=== PATIENT | female | born 2005 | race Caucasian/White ===

== ENCOUNTER 2025-03-04 19:10 | Emergency (ER) | payer OTHER, SELFPAY ==
--- NOTE | ~2025-03-04 | XR_ITS ---
CLINICAL HISTORY: sob 2 view chest x-ray Comparison: None provided Findings: Heart size is normal. Vague left lower lobe opacity. Right lung is clear. No pleural effusion or pneumothorax. No acute fracture. IMPRESSION: 1. Vague left lower lobe opacity either atelectasis or early pneumonia. Correlate clinically. This document has been electronically signed by: Hilary Cleaning MD on 03/04/2025 20:16:45
[2025-03-04 19:22] VITALS: BP 114/71; PULSE 89; RESP 20; TEMP 36.3; O2SAT 100; BMI 16.3
--- NOTE | 2025-03-04 19:23 | ED.GENADULT ---
HPI - General Adult General Chief complaint: Dyspnea Stated complaint: Difficulty breathing/low blood pressure Time Seen by Provider: 03/04/25 22:05 Source: patient and family (mom) Mode of arrival: ambulatory Limitations: no limitations History of Present Illness ED Provider: Dr. Ivett Capone HPI narrative: 19-year-old female with history of anorexia presenting with substernal chest pain, sore throats, decreased oral intake and diffuse myalgias, worse in the bilateral lower extremities ongoing for the last several months. Admits that she has been suffering from severe leg pain since [place]. Describes muscle aches that have been persistent since the fall. Admits that she has had an extensive workup including orthopedic surgery follow-up and MRIs of her legs that have been reportedly normal. Denies associated fevers. Describes poor appetite and 10 lb weight loss during this time frame. She is adamant that she does not have worsening anorexia though she does struggle with this previously. Admits to feeling severely anxious about the pain. Has been using Tylenol without relief. No specific tick exposure or sick contacts. Denies cough or cold-type symptoms. Has not spoken with her primary care doctor about this but has been to the urgent care multiple times Related Data Previous Rx's ?Medication ?Instructions ?Recorded duloxetine 20 mg capsule,delayed 20 mg PO DAILY 60 days #60 caps 03/04/25 release Allergies Allergy/AdvReac Type Severity Reaction Status Date / Time No Known Allergies Allergy Verified 03/04/25 19:28 Review of Systems Review of Systems: as per HPI, full review of systems performed and negative but for the above mentioned pertinent positives and negatives. [facility] Social History Social History Smoked in Last 30 Days: No Use of substances other than those prescribed or required for medical reasons: No Advance Directives: No Advance Directives Information Provided: No Patient : No Physical Exam ED Exam Exam: GENERAL: Anxious, tearful, cachetic. SKIN: Normal skin color for ethnicity, warm, dry, intact, no rashes noted. HEENT: Normocephalic, atraumatic, no stridor, posterior oropharynx nonerythematous, dentition intact, EOMI. NECK: Soft, supple, full ROM, midline structures nontender, no step-offs, no deformities, no lymphadenopathy. CHEST: Heart regular tachycardia, no murmurs, symmetric chest rise and fall, no crepitus. PULMONARY: Clear to auscultation bilaterally, no labored breathing, no wheezes/rhales/ rhonchi. ABDOMINAL: Soft, nondistended, nontender, positive bowel sounds in all quadrants. : Deferred. MUSCULOSKELETAL: Normal tone, full range of motion, no deformities, no peripheral edema. NEURO: Alert and oriented x3, CN II through XII intact, equal strength and sensation bilateral upper and lower extremities, no focal neurologic deficits. PSYCHIATRIC: Anxious affect, tearful, fluid speech, poor eye contact and appropriate demeanor. Vital Signs: Vital Signs - 24 hr 03/04/25 19:22 03/04/25 21:16 03/04/25 22:53 Temperature 97.4 F 97.7 F 97.8 F Pulse Rate 89 84 73 Respiratory Rate 20 16 18 Blood Pressure 114/71 96/62 90/55 L Pulse Oximetry 100 100 99 Oxygen Delivery Method Room Air Room Air Room Air 03/05/25 00:30 03/05/25 00:34 Temperature 97.9 F 97.9 F Pulse Rate 78 78 Respiratory Rate 14 14 Blood Pressure 97/64 97/64 Pulse Oximetry 97 97 Oxygen Delivery Method Room Air BMI result Body Mass Index 16.3 Course Course Course Narrative: This is a Rapid Medical Examination (RME) performed by Elinaa Serna PA-C in triage. Full HPI, ROS, assessment and treatment plan per primary provider in the Main ED. Hx: 19 yo F here for eval of sob and substernal CP on waking from a name 1.5 hours ago. pain worse w/ deep inspiration/palpation. denies smoking tobacco or vaping. reports pulling a tick off of her neck a few weeks back. believes this may have been attached for 3 days. no rashes. reports she is currently on steroid treatment for knee pain. saw NE ramírez for this - had normal MRI. did not mention recent tick bite. PE/vitals: reproducible tenderness to anterior chest wall. lungs clear. Plan: labs, tick/lyme, ekg, cxr Medications Administered Discontinued Medications Generic Name Dose Route Start Last Admin Trade Name Freq PRN Reason Stop Dose Admin Duloxetine HCl 20 mg 03/04/25 23:38 03/05/25 00:29 Duloxetine Hcl 20 Mg Capsule.Dr BYNUM 03/04/25 23:39 20 mg ONCE ONE Administration Medical Decision Making Medical Decision Making [facility] Narrative: 19-year-old female presenting with diffuse myalgias, chronic pain unrelieved with Tylenol and extensively worked up as an outpatient including with orthopedic surgery and MRI imaging. Differential diagnosis includes viral syndrome, rhabdomyolysis, tick-borne illness, chronic fatigue syndrome, fibromyalgia, chronic pain syndrome, anxiety, depression, anorexia, among others. I had an extensive discussion with the patient and her mother regarding what I believed to be chronic fatigue/pain syndrome. She has and amplified response to pain at this point. Her workup is very reassuring. We talked about importance of follow-up with therapists as well as re-dressing her issue with food. She has lost 10 lb and is down to 43 kg. I am going to start her on duloxetine which I think will help her more than anything. Also encouraged the use of Motrin and Tylenol as needed. She is not really taking these medications regularly at home. At this point I feel she is stable for discharge. Using shared decision making, plan for discharge home to follow-up with primary care and/or specialist. Patient understands and agrees with plan for discharge. Discharged home in stable condition. Differential Diagnosis Differential Diagnoses: The differential diagnosis associated with the presentation includes (as above) Admission/Observation Consideration of admission/observation: Escalation of care including admission/observation considered Lab Data [facility] Lab Attestation statement: I reviewed the patient's lab results. 03/04/25 21:23 03/04/25 21:23 Labs: Lab Results 03/04/25 Range/Units 21:23 WBC 7.5 (4.8-10.8) X10*3/uL RBC 4.26 (4.20-5.50) X10*6/uL Hgb 13.4 (12.0-16.0) g/dl Hct 38.1 (37.0-47.0) % MCV 89.4 (80.0-98.0) fL MCH 31.5 (27.0-33.0) pg MCHC 35.2 H (31.0-35.0) g/dl RDW 11.4 (11.0-16.0) % Plt Count 209 (160-400) X10*3/uL MPV 9.0 L (9.4-12.3) fL Immature Gran % (Auto) 0.7 H (0.0-0.4) % Neut % (Auto) 76.3 H (45-73) % Lymph % (Auto) 15.0 L (20-40) % Gulf % (Auto) 6.8 (2-11) % Eos % (Auto) 0.7 (0-4) % Baso % (Auto) 0.5 (0-2) % Lymph # (Auto) 1.1 L (1.2-4.9) X10*3/uL Gulf # (Auto) 0.5 (0.1-1.2) X10*3/uL Eos # (Auto) 0.1 (0.0-0.4) X10*3/uL Baso # (Auto) 0.0 (0.0-0.2) X10*3/uL Abs Immat Gran (auto) 0.05 H (0.00-0.03) X10*3/uL Absolute Neuts (auto) 5.7 (2.0-8.3) x10*3/uL Absolute Nucleated RBC 0.000 (0.0-0.012) X10*3/uL Nucleated RBC % (auto) 0.0 (0.0-0.2) /100WBC Sodium 143 (135-145) mmol/L Potassium 3.9 (3.3-5.1) mmol/L Chloride 109 H (96-108) mmol/L Carbon Dioxide 28 (22-29) mmol/L Anion Gap 10 L (12-20) BUN 14 (9-16) mg/dL Creatinine 0.76 (0.5-1.4) mg/dL Estim Creat Clear Calc 80.5 Estimated GFR > 60 Random Glucose 129 H (60-115) mg/dL Calcium 9.5 (8.4-10.2) mg/dL Magnesium 2.0 (1.6-2.6) mg/dL Total Bilirubin 0.3 (0.0-1.0) mg/dL AST 17 (5-31) U/L ALT 24 (0-31) U/L Alkaline Phosphatase 47 (39-117) U/L Troponin I High Sens < 2.7 (<3.5-17.0) ng/L Total Protein 6.6 (6.5-8.0) g/dL Albumin 4.3 (3.5-5.0) g/dL Lipase 27 (8-78) U/L Beta HCG, Quant < 2 mIU/mL A.phagocytophil DNA PCR NOT DETECTED (NOT DETECTED) Babesia microti DNA PCR NOT DETECTED (NOT DETECTED) Borrelia sp DNA (PCR) NOT DETECTED (NOT DETECTED) Borrelia miyamotoi (PCR) NOT DETECTED (NOT DETECTED) E.chaffeensis DNA (PCR) NOT DETECTED (NOT DETECTED) Tick-borne Disease PCR SEE NOTE Independent Interpretation I performed an independent interpretation of an: EKG and Plain X-Ray Interpretation: My independent interpretation of the chest x-ray reveals no consolidations, pulmonary edema, pleural effusion, pneumothorax, obvious bony abnormalities. Radiology Impression Discussion of test interpretation with radiology: I have reviewed the radiologist's reading. Independent Historian Clinical information obtained from an independent historian. History obtained from or confirmed by: Parent Prescription Management I considered prescription management with: Pain Medication and Other (antidepressant) Chronic Conditions Patient?s care impacted by: Other (anorexia, anxiety) Discharge Plan Discharge Clinical Impression: Acute dyspnea, Chronic pain syndrome Patient Disposition: Home, Self-Care Additional Instructions: Take duloxetine daily to help with the pain. You need to start to follow up with a therapist as well. You need to take this medication every day for it to really help. That being said, if you have to stop this medication, you should wean off of it rather than stopping abruptly. You need to see your primary care doctor the have it prescribed technician terminal and repeater. Return to the ER with any new or worsening symptoms including: Worsening chest pain, difficulty breathing, fevers greater than 100 degrees, cough productive of brown or green sputum, vomiting, any new symptom that concerns you. Call 911 with any medical emergency. Prescriptions: New duloxetine 20 mg capsule,delayed release(DR/EC) 20 mg PO DAILY 60 Days Qty: 60 0RF Interventions: ED Discharge Assessment Last Done: 03/05/25 00:34 Discharge Date/Time: 03/05/25 00:36 Print Language: Italian
--- NOTE | 2025-03-04 19:24 | ECG_ITS ---
Test Reason : chest pain Blood Pressure : */* mmHG Vent. Rate : 95 BPM Atrial Rate : 95 BPM P-R Int : 138 ms QRS Dur : 88 ms QT Int : 366 ms P-R-T Axes : 81 92 31 degrees QTcB Int : 459 ms Poor data quality, interpretation may be adversely affected Normal sinus rhythm Rightward axis Borderline ECG No previous ECGs available Referred By: Liv Serna Electronically Signed By: GIO BURDICK MD
[2025-03-04 21:16] VITALS: BP 96/62; PULSE 84; RESP 16; TEMP 36.5; O2SAT 100
[2025-03-04 21:33] LABS: MANUAL DIFF FLAG NO
[2025-03-04 21:35] LABS: Hematocrit 38.1 % (37.0-47.0); Hemoglobin 13.4 g/dl (12.0-16.0); Imm Gran Abs Auto 0.05 X10*3/uL (0.00-0.03); Imm Gran Pct Auto 0.7 % (0.0-0.4); Lymphocytes Absolute Auto 1.1 X10*3/uL (1.2-4.9); Mean Corpuscular HGB Conc 35.2 g/dl (31.0-35.0); Mean Corpuscular Hemoglobin 31.5 pg (27.0-33.0); Mean Corpuscular Volume 89.4 fL (80.0-98.0); NRBC Abs Auto 0.000 X10*3/uL (0.0-0.012); NRBC Pct Auto 0.0 /100WBC (0.0-0.2); Platelet Count 209 X10*3/uL (160-400); Red Blood Count 4.26 X10*6/uL (4.20-5.50); White Blood Count 7.5 X10*3/uL (4.8-10.8)
[2025-03-04 22:03] LABS: Alanine Aminotransferase 24 U/L (0-31); Albumin Level 4.3 g/dL (3.5-5.0); Alkaline Phosphatase 47 U/L (39-117); Anion Gap 10 (12-20); Aspartate Amino Transferase 17 U/L (5-31); Blood Urea Nitrogen 14 mg/dL (9-16); Calcium 9.5 mg/dL (8.4-10.2); Carbon Dioxide 28 mmol/L (22-29); Chloride 109 mmol/L (96-108); Creatinine Clr Calc Pharmacy 80.5; Estimated Glomerular Filt Rate > 60; Lipase 27 U/L (8-78); Magnesium 2.0 mg/dL (1.6-2.6); Potassium 3.9 mmol/L (3.3-5.1); Sodium 143 mmol/L (135-145); Total Protein 6.6 g/dL (6.5-8.0)
[2025-03-04 22:04] LABS: Troponin-I High Sensitivity < 2.7 ng/L (<3.5-17.0)
[2025-03-04 22:53] VITALS: BP 90/55; PULSE 73; RESP 18; TEMP 36.6; O2SAT 99
[2025-03-05 00:30] VITALS: BP 97/64; PULSE 78; RESP 14; TEMP 36.6; O2SAT 97
[2025-03-05 00:34] VITALS: BP 97/64; PULSE 78; RESP 14; TEMP 36.6; O2SAT 97
[2025-03-07 21:08] LABS: A. Phagocytphilium DNA,RT-PCR NOT DETECTED (NOT DETECTED); Babesia Microti DNA, RT-PCR NOT DETECTED (NOT DETECTED); Borrelia Miyamotoi,DNA RT-PCR NOT DETECTED (NOT DETECTED); E.Chaffeensis DNA RT-PCR NOT DETECTED (NOT DETECTED); Lyme(Borrelia ssp)DNA RT-PCR NOT DETECTED (NOT DETECTED)
[2025-03-08 02:03] LABS: Lyme Abs Screen <0.90 index
== END 2025-03-05 00:36 | disposition home or self-care (01) ==
PROVIDERS: Physician Assistant Medical; Emergency Provider Emergency Medicine; PCP Pediatrics
DX: R06.00 Dyspnea, unspecified (principal); G89.4 Chronic pain syndrome; R63.0 Anorexia; R64 Cachexia; F41.9 Anxiety disorder, unspecified; Z68.1 Body mass index [BMI] 19.9 or less, adult
CPT/HCPCS: 36415; 71046; 80053; 83690; 83735; 84484; 84702; 85025; 86617; 86618; 87468; 87469; 87478; 87484; 87798; 93005; 99283; 99284

== ENCOUNTER → 2025-03-04 19:24 | Outpatient (BNV) | payer OTHER, SELFPAY | PROVIDERS: Emergency Provider Emergency Medicine; PCP Pediatrics; Visit Provider Internal Medicine Cardiovascular Disease | DX: R06.02 Shortness of breath (principal); R91.8 Other nonspecific abnormal finding of lung field | CPT/HCPCS: 93010 ==

== ENCOUNTER → 2025-03-04 19:29 | Outpatient (BNV) | payer SELFPAY | PROVIDERS: Visit Provider Specialist | DX: R06.02 Shortness of breath (principal) | CPT/HCPCS: 71046 ==